=== PATIENT | male | born 1975 | race Caucasian/White ===

== ENCOUNTER 2021-10-29 00:49 | Emergency (ER) | payer MEDICARE ==
[~2021-10-29] VITALS: Ht 175.3 cm; Wt 72.7 kg
--- NOTE | 2021-10-29 02:20 | NUR ---
ASSUMED CARE OF PT. NOTICED THAT PT'S TRIAGE BP WAS LOW. TOOK PT'S BP. REPORTED NEW AND OLD BP READING TO DR MAIER. NO NEW ORDERS AT THIS TIME.
[2021-10-29] MEDS ORDERED: IBUP-1986 PO (02:28)
[2021-10-29] MEDS ORDERED: ketorolac trometh. 30mg/ml inj. IM ONE (02:30)
--- NOTE | 2021-10-29 02:50 | NUR ---
ASKED DR JIMÉNEZ AGAIN IF HE IS CONCERNED OF BP. PT IS ALERT AND ORIENTED X4. AMBULATES WITH ERECT AND COORDINATED GAIT. MD GAVE PT INSTRUCTIONS TO HYDRATE WITH WATER. PT PROVIDE WITH WATER. PT VERBALIZED UNDERSTANDING.
[2021-10-29 02:55] VITALS: BP 98/58
== END 2021-10-29 02:56 | disposition home or self-care (01) ==
LOC: ER 00:52
DX: S20.212A Contusion of left front wall of thorax, initial encounter (principal); F17.210 Nicotine dependence, cigarettes, uncomplicated; F12.90 Cannabis use, unspecified, uncomplicated; Z72.89 Other problems related to lifestyle; Z79.899 Other long term (current) drug therapy; W19.XXXA Unspecified fall, initial encounter; Y93.89 Activity, other specified; Y92.89 Other specified places as the place of occurrence of the external cause; Y99.8 Other external cause status
CPT/HCPCS: 71101; 96372; 99284; J1885